=== PATIENT | female | born 1965 | race Two or more races ===

== ENCOUNTER 2019-10-31 06:45 | Day surgery (SDC) | payer OTHER ==
[2019-10-31] VITALS (10 sets, daily range): BP systolic 107–122; BP diastolic 67–83
[~2019-10-31] VITALS: Ht 160 cm; Wt 54.4 kg
[~2019-10-31 06:45] MED LIST: CLARITIN5 MG ORAL; NASAL SPRAY30 M2 NS; NEXIUM20 MG ORAL; RESTASIS1 EACH BOTH EYES; URECHOLINE10 MG ORAL
[2019-10-31] MEDS ORDERED: LR 1000ml 1,000 ML IVLG SCH ×2 (07:00→07:24)
--- NOTE | 2019-10-31 07:28 | Anethesia Preoperative Eval ---
Anesthesia Pre-op PMH/ROS General Date of Evaluation: Oct 31, 2019 Time of Evaluation: 07:25 Anesthesiologist: russel ASA Score: ASA 3 Mallampati Score Class I : Soft palate, uvula, fauces, pillars visible Class II: Soft palate, uvula, fauces visible Class III: Soft palate, base of uvula visible Class IV: Only hard plate visible Mallampati Classification: Class II Surgeon: sandra Diagnosis: abdominal pain, diarrhea Surgical Procedure: egd/colonoscopy Anesthesia History: none Social History: smoking - former smoker Family History: no anesthesia problems Allergies: Coded Allergies: No Known Allergies (Unverified , 10/31/19) Medications: see eMAR Patient NPO?: Yes Past Medical History Pulmonary: Reports: asthma Gastrointestinal/Genitourinary: Reports: GERD Hematology/Immune: Reports: other - covid-19 negative Musculoskeletal/Integumentary: Reports: other - left foot fracture Anesthesia Pre-op Phys. Exam Physician Exam Last Vital Signs Date Time Temp Pulse Resp B/P (MAP) Pulse Ox O2 Delivery O2 Flow Rate FiO2 10/31/19 07:29 97.7 79 18 107/69 99 Room Air Constitutional: NAD Neurologic: CN 2-12 intact Cardiovascular: RRR Respiratory: CTA Gastrointestinal: S/NT/ND Airway Exam Mallampati Score: Class II MO: limited Neck: flexible TMD: 2fb ROM: limited Teeth: intact Anesthesia Pre-op A/P Labs Microbiology Date/Time Source Procedure Growth Status 10/28/19 09:05 Nasopharynx SARS-CoV-2 RdRp Gene Assay - Final Complete Risk Assessment & Plan Assessment: asa3 Plan: mac Status Change Before Surgery: No Pre-Antibiotics Drug: Marya Parkinson MD Oct 31, 2019 07:28
[2019-10-31] MEDS ORDERED: fentaNYL 100 mcg/2 mL IV PRN (07:30)
[2019-10-31] MEDS ORDERED: DiphenhydrAMINE 50mg/ml Inj IVP PRN (07:30)
[2019-10-31] MEDS ORDERED: Midazolam 2mg/2ml Inj IVP PRN (07:30)
[2019-10-31] MEDS ORDERED: Atropine Inj 1mg/10ml Syr IV PRN (07:30)
[2019-10-31] MEDS ORDERED: LR 1000ml ONE (08:00)
[2019-10-31] MEDS ORDERED: Lidocaine 1% MPF 10mg/ml 5ml ONE (08:00)
--- NOTE | 2019-10-31 08:26 | Pre-Procedure Note/Attestation ---
Pre-Procedure Note/Attestation Complete Prior to Procedure Planned Procedure: not applicable Procedure Narrative: colon Indications for Procedure Pre-Operative Diagnosis: flank pain diarrhea, suspected crohns dz Attestation I attest that I discussed the nature of the procedure; its benefits; risks and complications; and alternatives (and the risks and benefits of such alternatives ), prior to the procedure, with the patient (or the patient's legal electroplating sales representative). I attest that, if there was a reasonable possibility of needing a blood transfusion, the patient (or the patient's legal electroplating sales representative) was given the [facility] standardized written summary, pursuant to the [place] Blood Safety Act ([place] Health and Safety Code # 1645, as amended). I attest that I re-evaluated the patient just prior to the surgery and that there has been no change in the patient's H&P, except as documented below: Frank Brunson MD Oct 31, 2019 08:26
--- NOTE | 2019-10-31 08:26 | Short Stay Surgery H&P ---
History of Present Illness History of Present Illness Chief Complaint see attached HPI Faustina Adair is a 53 year old female who was admitted on for Abdominal Pain, Diarrhea Patient History Allergies: Coded Allergies: No Known Allergies (Unverified , 10/31/19) Medication History Scheduled Bethanechol Chl (Bethanechol Chloride), 10 MG ORAL DAILY, (Reported) Cyclosporine (Restasis), 1 DROP BOTH EYES NEEDED, (Reported) Esomeprazole Magnesium (Nexium), 20 MG ORAL DAILY, (Reported) Loratadine (Claritin), 5 MG ORAL DAILY, (Reported) Oxymetazoline Hcl (Nasal [place]), 30 ML NS DAILY, (Reported) Physical Exam Vital Signs Last Vital Signs Date Time Temp Pulse Resp B/P (MAP) Pulse Ox O2 Delivery O2 Flow Rate FiO2 10/31/19 07:29 97.7 79 18 107/69 99 Room Air Plan Attestation Are the patient's medical conditions optimized for surgery? Frank Brunson MD Oct 31, 2019 08:25
--- NOTE | 2019-10-31 09:06 | Endoscopy Procedure Note ---
Endoscopy Procedure Note General Indication for Procedure: abd/flank pain, r/o IBD Operative Findings/Diagnosis: single TI apthous ulcer Specimen: yes Pt Tolerated Procedure Well: Yes Estimated Blood Loss: none Anesthesia Anesthesiologist: Alexey Santiago Anesthesia: MAC Medications Medication Given: see anesthesia record Inserted Devices Implant(s) used?: No GI Core Measures 50 yrs or older w/o bx or poly: Not Applicable 10yrs. F/U recommended: Not Applicable Frank Brunson MD Oct 31, 2019 09:06
--- NOTE | 2019-10-31 09:07 | Brief Operative Note ---
Immediate Post Operative Note Operative Note Chief Complaint: abd/flank pain Pre-op Diagnosis: flank pain diarrhea, suspected crohns dz Procedure: colon bx Post-op Diagnosis: single apthouus ulcer Surgeon: sandra Anesthesiologist: tor Santiago Anesthesia: MAC Specimen: yes Complications: none Condition: stable Fluids: per anesthsia Implant(s) used?: No Frank Brunson MD Oct 31, 2019 09:07
--- NOTE | 2019-10-31 09:31 | Immediate Post-Op Evaluation ---
Immediate Post-Op Evalulation Immediate Post-Op Evalulation Procedure: colonoscopy w/bx Date of Evaluation: Oct 31, 2019 Time of Evaluation: 09:18 IV Fluids: 500ml lr Blood Products: none Estimated Blood Loss: negligible Blood Pressure Systolic: 115 Blood Pressure Diastolic: 76 Pulse Rate: 75 Respiratory Rate: 18 O2 Sat by Pulse Oximetry: 100 Temperature (Fahrenheit): 97.8 Pain Score (1-10): 0 Nausea: No Vomiting: No Complications none Patient Status: awake, reacts, patent Hydration Status: adequate Drug: Marya Parkinson MD Oct 31, 2019 09:31
--- NOTE | 2019-10-31 09:32 | 48 Hour Post Anesthesia Eval ---
Post Anesthesia Evaluation Procedure: colonoscopy w/bx Date of Evaluation: Oct 31, 2019 Time of Evaluation: 09:20 Blood Pressure Systolic: 119 0: 67 Pulse Rate: 69 Respiratory Rate: 18 Temperature (Fahrenheit): 97.8 O2 Sat by Pulse Oximetry: 100 Airway: patent Nausea: No Vomiting: No Pain Intensity: 0 Hydration Status: adequate Cardiopulmonary Status: stable Mental Status/LOC: patient returned to baseline Post-Anesthesia Complications: none Follow-up care needed: N/A Marya Pulido MD Oct 31, 2019 09:32
--- NOTE | 2019-10-31 22:15 | Operative Note - Dictated ---
DATE OF OPERATION: 10/31/2019 GASTROENTEROLOGY PROCEDURE REPORT PROCEDURE: Colonoscopy with biopsy. SURGEON: Frank Brunson MD. ANESTHESIA: Please see the separate anesthesiologist notes for details. PRE-ENDOSCOPIC DIAGNOSIS: Abdominal pain and concern for possible inflammatory bowel disease. POST-ENDOSCOPIC DIAGNOSES: 1. A single 3 to 4 mm aphthous ulcer seen in the distal ileum, which was biopsied. 2. The terminal ileum was otherwise normal to 15 cm, status post multiple biopsies. 3. Colonic mucosa was normal and was biopsied of the right colon, left colon, and rectosigmoid colon. DESCRIPTION OF PROCEDURE: The procedure, its risks, indications, alternatives, and possible complications including, but not limited to bleeding, infection, perforation, , and anesthesia complications were explained to the patient and informed consent was obtained. The patient was then sedated in the left lateral decubitus position and a rectal exam was done, which was normal. The colonoscope was then introduced into the rectum and advanced to 15 cm into the terminal ileum. The colonoscope was then gradually withdrawn and mucosa examined carefully. Examination of the terminal ileal mucosa revealed a single 3 to 4 mm aphthous ulcer, which were shallow and on top of the small nodule. This was biopsied and biopsies were sent to pathology for review. In the terminal ileum, there were no other ulcerations or abnormalities identified. The random biopsies of the terminal ileum were sent to pathology for review. The colonic mucosa did not reveal any abnormalities. Random biopsies of the right colon, left colon, and rectosigmoid colon were sent to pathology for review. The retroflexed view of the rectum was unremarkable. The colonoscope was removed. The patient was sent to recovery in good condition. COMPLICATIONS: None. ASSESSMENT: This examination was notable for single aphthous ulcer in the terminal ileum, which was located on top for small nodule. The significance of this single finding is unclear and may not represent significant inflammatory bowel disease. Biopsies will be evaluated to see if this could just have been slightly eroded lymphoid nodule. The biopsy should be evaluated to rule out microscopic disease. The capsule endoscopy can be considered to evaluate the remainder of the small bowel. RECOMMENDATIONS: 1. Follow up biopsy results. 2. Outpatient followup. 3. Consider small bowel capsule endoscopy. Frank Brunson M.D. DR: JOHN JOB#: [id number] CC: [email or web address]
== END 2019-10-31 10:40 | disposition home or self-care (01) ==
LOC: GAS 06:45
DX: R10.9 Unspecified abdominal pain (principal); K12.0 Recurrent oral aphthae; Z79.899 Other long term (current) drug therapy; Z87.891 Personal history of nicotine dependence; K21.9 Gastro-esophageal reflux disease without esophagitis
CPT/HCPCS: 45380; 94003; J2704; J7120; U0002; 94150